=== PATIENT | male | born 1970 | race Caucasian/White ===

== ENCOUNTER 2017-11-06 07:45 | Day surgery (SDC) | payer OTHER ==
[~2017-11-06] VITALS: Ht 180.3 cm; Wt 56.0 kg
[~2017-11-06 07:45] MED LIST: BALANCED B-501 EAC1 PO; DIGESTIVE ENZY1 EAC3 PO; PROZAC10 MG PO; TENORMIN25 MG PO
[2017-11-06 08:19] VITALS: BP 110/72
[2017-11-06] MEDS ORDERED: NORCO 5/3251 TABLET PO (11:36)
[2017-11-06] MEDS ORDERED: MOTRIN600 MG PO (11:36)
[2017-11-06 12:11] VITALS: BP 111/74
[2017-11-06 13:17] VITALS: BP 114/66
== END 2017-11-06 14:00 | disposition home or self-care (01) ==
LOC: SDC 07:45
PROC: 0YU50JZ Supplement Right Inguinal Region with Synthetic Substitute, Open Approach (ICD-10-PCS; principal; 2017-11-06)
DX: K40.90 Unilateral inguinal hernia, without obstruction or gangrene, not specified as recurrent (principal); F41.8 Other specified anxiety disorders; R63.6 Underweight; Z68.1 Body mass index [BMI] 19.9 or less, adult
CPT/HCPCS: 93005; C1781; J0131; J0690; J1885; J2250; J2405; J3010; S0020

== ENCOUNTER 2018-05-20 14:34 | Emergency (ER) | payer OTHER ==
[~2018-05-20] VITALS: Ht 180.3 cm; Wt 51.8 kg
[~2018-05-20 14:34] MED LIST changes: +MOTRIN600 MG PO; +NORCO 5/3251 TABLET PO
[2018-05-20 14:36] VITALS: BP 108/73
[2018-05-20 15:01] LABS: HEMOGLOBIN 14.4 G/DL (12.5-16.6); MCH 32.1 PG (29.0-34.0); MCHC 35.1 G/DL (30.0-36.0); MCV 91.3 FL (86-99); PLATELET COUNT 270 K/uL (156-360); RBC DIS.WIDTH-CV 12.6 % (11.8-14.6); RBC DIS.WIDTH-SD 41.4 % (39-53); RED BLOOD COUNT 4.49 M/uL (4.00-5.50); WHITE BLOOD COUNT 4.9 K/uL (4.1-10.2)
[2018-05-20 15:09] LABS: ALBUMIN 4.7 g/dL (3.2-4.8)
[2018-05-20 15:10] LABS: CHLORIDE 101 mEq/L (99-109); POTASSIUM 4.4 mEq/L (3.7-5.4); SODIUM 139 mEq/L (136-147)
[2018-05-20 15:12] LABS: GLUCOSE 90 mg/dL (70-99); TOTAL PROTEIN 7.5 g/dL (6.4-8.3)
[2018-05-20 15:14] LABS: TOTAL BILIRUBIN 0.8 mg/dL (0.0-1.0)
[2018-05-20 15:15] LABS: ALKALINE PHOSPHATASE 53 IU/L (3-129)
[2018-05-20 15:16] LABS: CREATININE 0.9 mg/dL (0.6-1.3); GFR ESTIMATE (CALCULATED) > 59 mL/min/ (58.99-99999)
[2018-05-20 15:17] LABS: AST (GOT) 15 IU/L (2-34); UREA NITROGEN (BUN) 19 mg/dL (9-23)
[2018-05-20 15:18] LABS: ALT (GPT) 14 IU/L (3-49)
== END 2018-05-20 15:30 | disposition left against medical advice (07) ==
LOC: EME 14:34
DX: R42 Dizziness and giddiness (principal); Z53.21 Procedure and treatment not carried out due to patient leaving prior to being seen by health care provider
CPT/HCPCS: 80053; 81003; 82948; 85027